=== PATIENT | male | born 1975 | race Hispanic/Latino ===

== ENCOUNTER 2017-06-12 02:16 | Emergency (ER) | payer OTHER, SELFPAY ==
[2017-06-12 02:45] LABS: Bilirubin Small (Negative); Blood, Urine Negative (Negative); Clarity CLEAR (Clear); Glucose, Urine (Dipstick) Negative (Negative); Leukocyte Negative (Negative); Nitrite Negative (Negative); Protein, Urine (Dipstick) 30 mg/dL (Neg-Trace); Specific Gravity, Urine 1.023 (1.002-1.036)
[2017-06-12 02:48] LABS: Bacteria/HPF None Seen HPF (None Seen); Hyaline Casts/LPF 4-6 HYALINE CAST LPF (0-3 Hyaline); Pathc Cast-AUWi Flag 0.58 (0-2.49); RBC/HPF 0-3 HPF (0-3); Squamous Epithelial 0-3 HPF (0-3)
[2017-06-12 02:54] LABS: #Basophils 0.1 thou/uL (0.0-0.2); #Lymphocytes 2.7 thou/uL (1.20-3.40); #Monocytes 0.6 thou/uL (0.11-0.59); #Neutrophils 3.4 thou/uL (1.40-6.50); %Eosinophils 0.7 % (0.0-10.0); %Lymphocytes 39.8 % (21.0-51.0); %Monocytes 8.3 % (0.0-10.0); %Neutrophils 50.2 % (42.0-75.0); Hemoglobin 16.3 g/dL (14.0-18.0); Mean Corpuscular HGB CONC 35.8 g/dL (32.0-36.0); Mean Corpuscular Hemoglobin 31.4 pg (27.0-31.0); Mean Corpuscular Volume 87.7 fl (80.0-94.0); Mean Platelet Volume 5.8 fL (7.4-10.4); Platelet Count 404 thou/uL (130-400); RBC Distribution Width 11.8 % (11.5-14.5); Red Blood Cell (RBC) Count 5.19 mill/uL (4.70-6.10); White Blood Cell (WBC) Count 6.8 thou/uL (4.8-10.8)
[2017-06-12 03:15] LABS: ALT (SGPT) 27 U/L (8-55); AST (SGOT) 16 U/L (5-34); Albumin 4.9 g/dL (3.5-5.0); Alkaline Phosphatase 118 U/L (40-150); Anion Gap 11 mmol/L (10-20); BUN (Urea Nitrogen) 9 mg/dL (8.9-20.6); Calc. Creatinine Clearance 0 mL/min (70-130); Calcium 10.3 mg/dL (7.8-10.44); Carbon Dioxide 29 mmol/L (22-29); Chloride 101 mmol/L (98-107); Estimated GFR-MDRD Greater than 90; Globulin 3.3 g/dL (2.4-3.5); Glucose 103 mg/dL (70-105); Protein, Total 8.2 g/dL (6.0-8.3); Sodium 137 mmol/L (136-145)
[2017-06-12 04:40] LABS: BHCG - Serum Negative; Pregs Control Background? CLEAR/WHITE (CLR/WHITE); Pregs Control Bar Appear? YES (CONTROL BAR)
[2017-06-12] MEDS ORDERED: Metoclopramide HCl 10 MG/2 ML VIAL ONE (04:43)
[2017-06-12 05:11] LABS: Troponin I Less than 0.010 ng/mL (< 0.028)
[2017-06-12] MEDS ORDERED: Dicyclomine 20 MG TAB ONE (05:13)
[2017-06-12] MEDS ORDERED: Pantoprazole 40 MG VIAL ONE (05:21)
[2017-06-12 05:43] LABS: Methamphetamine Detected (NotDetected)
[2017-06-12 05:44] LABS: Amphetamine Detected (NotDetected); Barbiturates Screen Not Detected (NotDetected); Benzodiazepine Screen Not Detected (NotDetected); Cocaine Metabolite Screen Not Detected (NotDetected); Medtox Control Line Valid? VALID (VALID); Medtox Reader # READER 1; Methadone Not Detected (NotDetected); Opiate Screen Not Detected (NotDetected); Oxycodone Screen Not Detected (NotDetected); Phencyclidine (PCP) Not Detected (NotDetected); THC/Cannabinoid Screen Not Detected (NotDetected); Tricyclic Screen Not Detected (NotDetected)
[2017-06-12] MEDS ORDERED: Meropenem 1 GM in Sodium Chloride 0.9% 100 ML IVPB SCH (07:15)
[2017-06-12] MEDS ORDERED: Meropenem 1 GM in Sterile Water 20 ML SLOW IVP SCH (07:15)
[2017-06-12] MEDS ORDERED: ISOVUE-370 76%-LOCM 1 ML ONE (08:03)
--- NOTE | 2017-06-12 08:52 | CT ---
PRELIMINARY REPORT/[facility]/EMERGENTY AFTER-HOURS PROCEDURE CT Abdomen and Pelvis With Intravenous Contrast CLINICAL HISTORY: 41 years old, male; Pain and signs and symptoms; Nausea and vomiting; Abdominal pain; Localized; Left lower quadrant (llq); Patient HX: 41 yo m presents to ed C/O vomiting since sunday. Pt denies dairrh ea. States that he has not been eating or drinking much since then. Last bm was yesterday and normal. Pt still passing gas. Also reports llq abdominal pain. Denies dysuria. Pt states that he used to use cocaine a long time ago then sunday night used meth. States that this is about when his symptoms sta rted. TECHNIQUE: Axial computed tomography images of the abdomen and pelvis with intravenous contrast. Coronal reforma tted images were created and reviewed. COMPARISON: No relevant prior studies available. FINDINGS: Lung bases: Small nonspecific parenchymal opacity in the left lower lobe consistent small nodular opa cities and groundglass opacity, most likely representing loculated which could be due to infection or aspiration. ABDOMEN: Liver: Unremarkable. No mass. Gallbladder and bile ducts: Gallbladder wall is minimally thickened; however, there is no pericholecy stic inflammation to indicate acute cholecystitis. No cholelithiasis or biliary ductal dilatation. Pancreas: Unremarkable. No mass. No ductal dilation. Spleen: Unremarkable. No splenomegaly. Adrenals: Unremarkable. No mass. Kidneys and ureters: Unremarkable. No solid mass. No hydronephrosis. Stomach and bowel: Unremarkable. No obstruction. No mucosal thickening. Appendix: Normal appendix. PELVIS: Bladder: Unremarkable. No mass. Reproductive: Unremarkable as visualized. ABDOMEN and PELVIS: Intraperitoneal space: Unremarkable. No free air. No significant fluid collection. Bones/joints: No acute fracture. No dislocation. Soft tissues: Substantial gynecomastia. Vasculature: Unremarkable. No abdominal aortic aneurysm. Lymph nodes: Unremarkable. No enlarged lymph nodes. IMPRESSION: 1. Small area of bronchiolitis in the left lower lobe which could be due to infection or aspiration. 2. Substantial gynecomastia. 3. Minimal gallbladder wall thickening without pericholecystic inflammation may indicate early/mild a cute cholecystitis. Thank you for allowing us to participate in the care of your patient. Dictated and Authenticated by: Galdino Pickard MD 06/12/2017 5:15 AM Central Time ([place] & [place]) FINAL REPORT CT ABDOMEN AND PELVIS WITH IV CONTRAST DATE: 06/12/17. TIME: Performed on an emergency basis at 0500 hours. HISTORY: Abdominal pain. Vomiting. FINDINGS: No comparison. The findings agree with the preliminary report from [facility]. No evidence o f bowel obstruction. Subtle haziness at the level of the gallbladder wall is likely not significant. Clinical correlation regarding other signs and symptoms of early cholecystitis is required. Small focus of pneumonitis is confirmed at the left lung base. POS: OFF
--- NOTE | 2017-06-12 08:55 | ULT ---
PRELIMINARY REPORT/[facility]/EMERGENTY AFTER-HOURS PROCEDURE US Abdomen Limited, Right Upper Quadrant CLINICAL HISTORY: 41 years old, male; Pain and signs and symptoms; Nausea and vomiting; Abdominal pain; Localized; Righ t upper quadrant (ruq) TECHNIQUE: Real-time ultrasound of the right upper quadrant with image documentation. COMPARISON: CT Abdomen Pelvis W Con 2017-06-12 05:01 FINDINGS: Liver: Normal. No mass. No intrahepatic bile duct dilation. Gallbladder: There are numerous gallstones and gallbladder sludge. Pericholecystic fluid is present. There is gallbladder wall thickening measuring approximately 3 mm. A positive sonographic Marte sign is reported. Common bile duct: Unremarkable as visualized. No stones. No dilation. Pancreas: The pancreas is poorly-visualized due to overlying bowel gas. Right kidney: RIGHT kidney measures 10.2 x 4.9 x 4.6 cm. No stones. No hydronephrosis. IMPRESSION: Acute cholecystitis. Thank you for allowing us to participate in the care of your patient. Dictated and Authenticated by: Major Mckeon MD 06/12/2017 6:27 AM Central Time ([place] & [place]) RIGHT UPPER QUADRANT ULTRASOUND: Date: 06-12-17 Performed on emergency basis at 0543 hours. History: Right upper quadrant pain. FINDINGS: The findings agree with the preliminary report by Dr. Mckeon from [facility]. Large stones are confirmed within the gallbladder lumen with distention of the gallbladder and thickening of the wall . Findings are evidence of acute cholecystitis. Code QA POS: OFF
--- NOTE | 2017-06-12 10:16 | CON ---
DATE OF CONSULTATION: 06/12/2017 CHIEF COMPLAINT: Midepigastric pain. HISTORY: This is a 41-year-old male who was using methamphetamines on Sunday night, early Sunday tereza christine developed afterwards central abdominal pain, nausea, and vomiting. He came to the ER last night and now feels fine. No pain. PAST MEDICAL HISTORY: Otherwise, unremarkable. PAST SURGICAL HISTORY: None. ALLERGIES: No known drug allergies. MEDICATIONS: None. SOCIAL HISTORY: Single. 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 No tobacco, no alcoho l. FAMILY HISTORY: Noncontributory. PHYSICAL EXAMINATION: VITAL SIGNS: Temperature is 97.8, pulse 69, blood pressure 129/87. GENERAL: Well-developed, well-nourished male in no apparent distress. HEENT: No jaundice. LUNGS: Clear. HEART: Regular rate and rhythm. ABDOMEN: Soft, nontender, good bowel sounds. EXTREMITIES: Unremarkable. LABORATORY AND X-RAY FINDINGS: His white blood cell count is 6.8, H&H 16 and 45, platelet count 404. Electrolytes are fine. Liver function tests normal. His tox screen was positive for methamphetami ne and amphetamines. He had a CT scan that was pretty unremarkable, but an ultrasound that showed ga llstones, some wall thickening, some pericholecystic fluid. ASSESSMENT AND PLAN: Probable acute cholecystitis. However, he is better now. I gave him the optio n of coming in the hospital and getting this done, but he asked me to let him go home. He feels fine . He does not want to do it right now. He will follow up with me in the office. He understands bakari t these gallstones are not going to go away, they can lead to further complications like pancreatitis that could be life threatening and severe. He understands and still wants to go home.
--- NOTE | 2017-08-03 11:47 | EKG ---
Test Reason : ABD PAIN/ DRUG USE Blood Pressure : / mmHG Vent. Rate : 073 BPM Atrial Rate : 073 BPM P-R Int : 136 ms QRS Dur : 074 ms QT Int : 376 ms P-R-T Axes : 060 045 032 degrees QTc Int : 414 ms Normal sinus rhythm with sinus arrhythmia Normal ECG Confirmed by LIZBETH CONLEY ([id number]), senior editor RALEIGH ROSE ([id number]) on 08/03/2017 11:46:48 AM Referred By: JARVIS Confirmed By:LIZBETH CONLEY
== END 2017-06-12 08:23 | disposition home or self-care (01) ==
LOC: ERS 02:16
DX: K81.9 Cholecystitis, unspecified (principal); F17.210 Nicotine dependence, cigarettes, uncomplicated
CPT/HCPCS: 36415; 74177; 76705; 80053; 80306; 81003; 81015; 82553; 83690; 84484; 84703; 85025; 93005; 96361; 96374; 96375; 99406; A4216; C9113; J2185; J2765; J7050

== ENCOUNTER 2017-06-20 13:19 | Inpatient (IN) | payer SELFPAY ==
[2017-06-20 14:05] LABS: #Lymphocytes 1.8 thou/uL (1.20-3.40); #Monocytes 0.4 thou/uL (0.11-0.59); #Neutrophils 4.4 thou/uL (1.40-6.50); %Basophils 0.7 % (0.0-1.0); %Eosinophils 0.6 % (0.0-10.0); %Lymphocytes 26.4 % (21.0-51.0); %Monocytes 6.3 % (0.0-10.0); %Neutrophils 66.1 % (42.0-75.0); Hemoglobin 16.9 g/dL (14.0-18.0); Mean Corpuscular HGB CONC 36.2 g/dL (32.0-36.0); Mean Corpuscular Hemoglobin 31.5 pg (27.0-31.0); Mean Corpuscular Volume 87.1 fl (80.0-94.0); Mean Platelet Volume 5.9 fL (7.4-10.4); Platelet Count 393 thou/uL (130-400); RBC Distribution Width 11.8 % (11.5-14.5); Red Blood Cell (RBC) Count 5.36 mill/uL (4.70-6.10); White Blood Cell (WBC) Count 6.7 thou/uL (4.8-10.8)
[2017-06-20 14:19] LABS: Blood, Urine Negative (Negative); Clarity CLOUDY (Clear); Glucose, Urine (Dipstick) Negative (Negative); Protein, Urine (Dipstick) 30 mg/dL (Neg-Trace); Specific Gravity, Urine 1.032 (1.002-1.036)
[2017-06-20 14:22] LABS: Bacteria/HPF None Seen HPF (None Seen); RBC/HPF 0-3 HPF (0-3); Squamous Epithelial 0-3 HPF (0-3)
[2017-06-20 14:25] LABS: Pathc Cast-AUWi Flag 5.23 (0-2.49)
[2017-06-20 14:28] LABS: ALT (SGPT) 49 U/L (8-55); AST (SGOT) 19 U/L (5-34); Albumin 4.7 g/dL (3.5-5.0); Alkaline Phosphatase 132 U/L (40-150); Anion Gap 16 mmol/L (10-20); BUN (Urea Nitrogen) 15 mg/dL (8.9-20.6); Bilirubin, Total 1.5 mg/dL (0.2-1.2); Calc. Creatinine Clearance 0 mL/min (70-130); Calcium 9.7 mg/dL (7.8-10.44); Carbon Dioxide 20 mmol/L (22-29); Chloride 99 mmol/L (98-107); Estimated GFR-MDRD Greater than 90; Globulin 3.2 g/dL (2.4-3.5); Glucose 191 mg/dL (70-105); Lipase 9 U/L (8-78); Potassium 3.3 mmol/L (3.5-5.1); Protein, Total 7.9 g/dL (6.0-8.3); Sodium 132 mmol/L (136-145)
[2017-06-20 14:29] LABS: Bilirubin Moderate (Negative); Leukocyte Negative (Negative); Nitrite Negative (Negative)
[2017-06-20 14:35] LABS: Hyaline Casts/LPF 7-10 HYALINE CAST LPF (0-3 Hyaline); Other Casts/LPF None Seen LPF (0-3 Hyaline)
--- NOTE | 2017-06-20 18:21 | ULT ---
ULTRASOUND ABDOMEN LIMITED: (RIGHT UPPER QUADRANT) DATE: 06/20/17 TIME: 4:44 p.m. HISTORY: 41-year-old male with right upper quadrant abdominal pain. FINDINGS: Gallbladder: There is a 30 x 25 x 20 mm calculus in the proximal gallbladder body. Normal wall thickn ess. Positive tenderness over the gallbladder region. Common duct: 3 mm. Liver: Normal. Pancreas: Completely obscured by shadowing from bowel gas. Right kidney: No hydronephrosis. IMPRESSION: Positive for cholelithiasis. ANTONI Bullard POS: JOSE MIGUEL
[2017-06-20] MEDS ORDERED: Ketorolac Tromethamine 30 MG/ML VIAL ONE (18:55)
[2017-06-20] MEDS ORDERED: Ondansetron HCl/PF 4 MG/2 ML Vial IVP PRN (19:34)
[2017-06-20] MEDS ORDERED: Promethazine HCl 25 MG/ML VIAL IM/IV PRN (19:34)
[2017-06-20] MEDS ORDERED: Morphine 4 MG/ML VIAL SLOW IVP PRN ×2 (19:45)
[2017-06-20] MEDS: Piperacillin/Tazobactam 3.375 GM in Sodium Chloride 0.9% 100 ML IVPB SCH (21:39)
[2017-06-20] MEDS: Lactated Ringer's 1,000 ML IV SCH (21:44)
--- NOTE | 2017-06-20 23:28 | HP ---
CHIEF COMPLAINT: Severe right upper quadrant pain. HISTORY OF PRESENT ILLNESS: The patient is a 41-year-old male who a week ago, came to the ER with se imelda biliary colic. He got better. He decided did not want to have this gallbladder taken out, so felix marie went home. He returns with recurrence of the pain. Denies fever. He has been vomiting. He wants to have a surgery now. PAST MEDICAL HISTORY: Significant for known IV drug abuse including methamphetamine. PAST SURGICAL HISTORY: None. ALLERGIES: No known drug allergies. MEDICATIONS: None. SOCIAL HISTORY: He is single. He works at [employer]. No tobacco, no alcohol, but he does use amphetamines and methamphetamines. PHYSICAL EXAMINATION: VITAL SIGNS: His blood pressure 149/111, pulse 105, his temperature is 97.4. GENERAL: Well-developed, well-nourished male, in mild pain. HEENT: No jaundice. LUNGS: Clear. HEART: Regular rate and rhythm. ABDOMEN: Soft. He is tender in the right upper quadrant with a positive Marte sign. EXTREMITIES: Unremarkable. LABORATORY DATA: His white count 6.7, H and H 16 and 46, and platelet count 393. Electrolytes show an elevated bilirubin at 1.5. Urinalysis showed some ketones and bilirubin. ASSESSMENT: Acute cholecystitis with possible choledocholithiasis. PLAN: Admit, IV antibiotics and IV fluids. Recommend laparoscopic cholecystectomy with cholangiogra m in the morning.
[2017-06-21] MEDS: Piperacillin/Tazobactam 3.375 GM in Sodium Chloride 0.9% 100 ML IVPB SCH ×4 (03:03→21:16)
[2017-06-21 05:56] VITALS: BMI 24.3
[2017-06-21] MEDS ORDERED: Fentanyl 250 MCG/5 ML VIAL ONE (06:49)
[2017-06-21] MEDS ORDERED: Bupivacaine/Epinephrine 0.25% 30 ML VIAL ONE (07:06)
[2017-06-21] MEDS ORDERED: Iothalamate Meglumine 60% 50 ML VIAL FS ONE (07:06)
[2017-06-21] MEDS ORDERED: Piperacillin/Tazobactam 3.375 GM VIAL ONE (07:22)
[2017-06-21] MEDS: Lactated Ringer's 1,000 ML IV SCH ×3 (07:44→21:19)
[2017-06-21] MEDS ORDERED: HYDROcodone/Acetaminophen 10/325 mg Tablet PO PRN (08:44)
[2017-06-21] MEDS ORDERED: Morphine 4 MG/ML VIAL SLOW IVP PRN ×2 (08:44)
[2017-06-21] MEDS ORDERED: Promethazine HCl 25 MG/ML VIAL IM PRN ×3 (08:44→08:52)
[2017-06-21] MEDS ORDERED: Dextrose 50% Abboject 50 ML SYRINGE SLOW IVP PRN (08:44)
[2017-06-21] MEDS ORDERED: Calcium Carbonate 500 MG ChewTAB PO PRN (08:44)
[2017-06-21] MEDS ORDERED: Ondansetron HCl/PF 4 MG/2 ML Vial IVP PRN ×3 (08:44→08:52)
[2017-06-21] MEDS ORDERED: hydrALAZINE 20 MG/ML VIAL SLOW IVP PRN (08:44)
[2017-06-21] MEDS ORDERED: Dextrose 5% in Water 1,000 ML IV PRN (08:44)
[2017-06-21] MEDS ORDERED: Mag-Al 1200 mg/1200 mg/30 ML UDCUP PO PRN (08:44)
[2017-06-21] MEDS ORDERED: HYDROmorphone 2 MG/ML VIAL SLOW IVP PRN ×2 (08:52)
[2017-06-21] MEDS ORDERED: Promethazine HCl 25 MG/ML VIAL SLOW IVP PRN ×2 (08:52)
[2017-06-21] MEDS ORDERED: Fentanyl 100 MCG/2 ML VIAL ONE (08:53)
[2017-06-21] MEDS ORDERED: Ketorolac Tromethamine 30 MG/ML VIAL ONE (08:53)
--- NOTE | 2017-06-21 10:07 | RAD ---
INTRAOPERATIVE CHOLANGIOGRAM AND SURGERY: HISTORY: A 41-year-old male with a history of a laparoscopic cholecystectomy with cholangiogram, in a patient with abdominal pain and gallstones. FINDINGS: There is a nondilated common duct. There is emptying of the duodenum. No overt intraductal calculus . IMPRESSION: Unremarkable intraoperative cholangiogram. POS: JOSE MIGUEL
--- NOTE | 2017-06-21 10:30 | OP ---
PREOPERATIVE DIAGNOSES: Cholecystitis with elevated liver function tests. SURGEON: Neal Lowe M.D. PROCEDURE PERFORMED: Laparoscopic cholecystectomy with intraoperative cholangiogram. INDICATIONS: A 41-year-old male who has had multiple ER visits for severe right upper quadrant pain. Ultrasound showed cholelithiasis. He did have a bump in his LFTs. FINDINGS: He had a single large stone. The cholangiogram showed no filling defects, free flow in th e duodenum. PROCEDURE IN DETAIL: After informed consent was obtained, the patient was taken to the operating tasneem m and given general endotracheal anesthesia. She was placed in the supine position. Abdomen was pre pped and draped in usual fashion. Local anesthesia infiltrated subcutaneously and deep. A subumbili rossy incision was performed. The subcu divided sharply. The fascia grasped and two stay sutures of 0 Vicryl placed to side of midline. Midline incised. Digital palpation revealed no local adhesions. A blunt 10/12 trocar inserted. Pneumoperitoneum was created to a pressure of 15 mmHg. A 0 degree l aparoscope inserted under direct vision, three 5 mm ports placed subcostally. The gallbladder was gr asped and advanced superiorly. There were multiple adhesions to the gallbladder. These were taken d own using blunt and sharp dissection. The cystic duct, cystic artery in critical view was dissected out. A clip placed at the base of the gallbladder on the cystic duct, and incision made in the cysti c duct and the Arrow cholangiocatheter inserted. Intraoperative cholangiogram was performed utilizin g fluoroscopy. It showed free flow into the duodenum, no filling defects. The catheter removed. Th e duct triply ligated and divided. The artery triply ligated and divided. The gallbladder was remov ed from its fossa utilizing electrocautery. It was removed from the abdomen through the umbilical po rt. Hemostasis was assured. Trocars and retractors removed. The fascia closed with interrupted 0 V icryl suture. The skin closed with interrupted 4-0 Rapide. Dermabond applied. The patient tolerate d the procedure well and was transferred to recovery in good condition. Sponge and needle count veri fied correct x2.
[2017-06-21] MEDS: HYDROcodone/Acetaminophen 10/325 mg Tablet PO PRN ×2 (12:51→21:17)
[2017-06-21] MEDS: Famotidine 20 MG TAB PO SCH ×2 (12:53→21:18)
[2017-06-21] MEDS: Famotidine/PF 20 mg/2ml Vial SLOW IVP SCH ×2 (12:54→21:19)
[2017-06-21] MEDS ORDERED: Dexamethasone 20 MG/5 ML VIAL ONE ×2 (16:35)
[2017-06-21] MEDS ORDERED: Lidocaine 1% PF 5 ML VIAL ONE (16:35)
[2017-06-21] MEDS ORDERED: diphenhydrAMINE 50 MG/ML VIAL ONE (16:35)
[2017-06-21] MEDS ORDERED: PROPOFOL 200 MG/20 ML VIAL ONE (16:35)
[2017-06-21] MEDS ORDERED: Glycopyrrolate 0.2 MG/ML 5 ML SYRINGE ONE (16:35)
[2017-06-22] MEDS: Lactated Ringer's 1,000 ML IV SCH ×2 (02:30→14:37)
[2017-06-22] MEDS: Piperacillin/Tazobactam 3.375 GM in Sodium Chloride 0.9% 100 ML IVPB SCH ×3 (03:49→15:58)
[2017-06-22 05:33] LABS: #Lymphocytes 2.3 thou/uL (1.20-3.40); #Monocytes 0.7 thou/uL (0.11-0.59); %Basophils 0.2 % (0.0-1.0); %Eosinophils 0.3 % (0.0-10.0); %Lymphocytes 25.6 % (21.0-51.0); %Monocytes 7.6 % (0.0-10.0); %Neutrophils 66.3 % (42.0-75.0); Hemoglobin 11.7 g/dL (14.0-18.0); Mean Corpuscular HGB CONC 35.3 g/dL (32.0-36.0); Mean Corpuscular Hemoglobin 31.4 pg (27.0-31.0); Mean Corpuscular Volume 89.1 fl (80.0-94.0); Mean Platelet Volume 6.5 fL (7.4-10.4); Platelet Count 284 thou/uL (130-400); RBC Distribution Width 11.7 % (11.5-14.5); Red Blood Cell (RBC) Count 3.73 mill/uL (4.70-6.10); White Blood Cell (WBC) Count 9.1 thou/uL (4.8-10.8)
[2017-06-22] MEDS ORDERED: Enoxaparin Sodium 40 MG/0.4 ML SYRINGE SC SCH (06:00)
[2017-06-22 06:18] LABS: ALT (SGPT) 59 U/L (8-55); AST (SGOT) 39 U/L (5-34); Albumin 3.3 g/dL (3.5-5.0); Alkaline Phosphatase 109 U/L (40-150); Anion Gap 10 mmol/L (10-20); BUN (Urea Nitrogen) 4 mg/dL (8.9-20.6); Bilirubin, Total 0.4 mg/dL (0.2-1.2); Calc. Creatinine Clearance 139 mL/min (70-130); Carbon Dioxide 25 mmol/L (22-29); Chloride 110 mmol/L (98-107); Estimated GFR-MDRD Greater than 90; Glucose 150 mg/dL (70-105); Lipase 19 U/L (8-78); Potassium 3.5 mmol/L (3.5-5.1); Protein, Total 5.3 g/dL (6.0-8.3); Sodium 141 mmol/L (136-145)
[2017-06-22] MEDS: HYDROcodone/Acetaminophen 10/325 mg Tablet PO PRN ×2 (06:50→17:28)
[2017-06-22] MEDS: Famotidine 20 MG TAB PO SCH (08:59)
[2017-06-22] MEDS: Famotidine/PF 20 mg/2ml Vial SLOW IVP SCH (09:01)
--- NOTE | 2017-06-22 10:05 | DIS ---
DISCHARGE DIAGNOSIS: Severe biliary colic. SURGEON: Dr. Lowe. PROCEDURE PERFORMED: Laparoscopic cholecystectomy with cholangiogram. HOSPITAL COURSE: The patient was admitted, given IV antibiotics, IV fluids, taken to the operating r oom where he underwent a laparoscopic cholecystectomy with cholangiogram. He was found to have a sin gle large stone and normal cholangiogram. Postoperatively, he had moderate pain. He was kept one ni ght. He is discharged now in good condition, tolerating a regular diet, pain controlled on p.o. meds . He will be discharged on [place] and Zofran. He will follow up with me in 2 weeks.
[2017-06-22 15:48] VITALS: BP 136/89; TEMP 97.9
[2017-06-22] MEDS ORDERED: Polyethylene Glycol 3350 17 GM Packet PO SCH (16:15)
[2017-06-23] MEDS ORDERED: Enoxaparin Sodium 40 MG/0.4 ML SYRINGE SC SCH (09:00)
== END 2017-06-22 19:38 | disposition home or self-care (01) | DRG 419 ==
LOC: ERS 13:19 → OBSVTOIN 18:42 → SURG B 18:42 → UNDODISOB 06-22 19:38
PROVIDERS: ADMIT Surgery; ATTEND Surgery
PROC: 0FT44ZZ Resection of Gallbladder, Percutaneous Endoscopic Approach (ICD-10-PCS; principal; 2017-06-21)
PROC: BF101ZZ Fluoroscopy of Bile Ducts using Low Osmolar Contrast (ICD-10-PCS; 2017-06-21)
DX: K80.10 Calculus of gallbladder with chronic cholecystitis without obstruction (principal); F15.10 Other stimulant abuse, uncomplicated
CPT/HCPCS: 36415; 47532; 76705; 80053; 81003; 81015; 82150; 83605; 83690; 85025; 88304; 96361; 96374; J1100; J1200; J1650; J1885; J2001; J2543; J2704; J3010; J7050; Q9961

== ENCOUNTER 2017-07-13 20:46 | Emergency (ER) | payer SELFPAY ==
[2017-07-13 21:22] LABS: Bilirubin Negative (Negative); Blood, Urine Negative (Negative); Clarity CLEAR (Clear); Glucose, Urine (Dipstick) Negative (Negative); Leukocyte Trace (Negative); Nitrite Negative (Negative); Protein, Urine (Dipstick) Negative (Neg-Trace); Specific Gravity, Urine 1.027 (1.002-1.036); Urobilinogen 0.2 mg/dL (0.2-1.0); pH, Urine 5.5 (5.0-9.0)
[2017-07-13 21:24] LABS: Bacteria/HPF None Seen HPF (None Seen); Pathc Cast-AUWi Flag 1.74 (0-2.49); RBC/HPF 0-3 HPF (0-3); Squamous Epithelial 0-3 HPF (0-3)
[2017-07-13 21:25] LABS: Hyaline Casts/LPF 4-6 HYALINE CAST LPF (0-3 Hyaline)
[2017-07-13 22:30] LABS: #Basophils 0.1 thou/uL (0.0-0.2); #Eosinphils 0.2 thou/uL (0.0-0.7); #Lymphocytes 2.9 thou/uL (1.20-3.40); #Monocytes 0.7 thou/uL (0.11-0.59); #Neutrophils 4.2 thou/uL (1.40-6.50); %Basophils 0.7 % (0.0-1.0); %Eosinophils 2.8 % (0.0-10.0); %Lymphocytes 35.9 % (21.0-51.0); %Neutrophils 51.7 % (42.0-75.0); Hemoglobin 12.6 g/dL (14.0-18.0); Mean Corpuscular HGB CONC 35.7 g/dL (32.0-36.0); Mean Corpuscular Hemoglobin 31.6 pg (27.0-31.0); Mean Corpuscular Volume 88.4 fl (80.0-94.0); Mean Platelet Volume 5.7 fL (7.4-10.4); Platelet Count 394 thou/uL (130-400); RBC Distribution Width 11.3 % (11.5-14.5); Red Blood Cell (RBC) Count 3.99 mill/uL (4.70-6.10); White Blood Cell (WBC) Count 8.1 thou/uL (4.8-10.8)
[2017-07-13] MEDS ORDERED: Acetaminophen 325 MG TAB ONE (22:43)
[2017-07-13 22:53] LABS: ALT (SGPT) 11 U/L (8-55); AST (SGOT) 11 U/L (5-34); Albumin 3.6 g/dL (3.5-5.0); Alkaline Phosphatase 104 U/L (40-150); Anion Gap 10 mmol/L (10-20); BUN (Urea Nitrogen) 10 mg/dL (8.9-20.6); Bilirubin, Total 0.4 mg/dL (0.2-1.2); Calc. Creatinine Clearance 0 mL/min (70-130); Calcium 8.5 mg/dL (7.8-10.44); Carbon Dioxide 24 mmol/L (22-29); Chloride 107 mmol/L (98-107); Estimated GFR-MDRD Greater than 90; Globulin 2.7 g/dL (2.4-3.5); Glucose 106 mg/dL (70-105); Lipase 30 U/L (8-78); Potassium 3.3 mmol/L (3.5-5.1); Protein, Total 6.3 g/dL (6.0-8.3); Sodium 138 mmol/L (136-145)
== END 2017-07-14 00:42 | disposition home or self-care (01) ==
LOC: EEVIPCON 20:46 → ERS 20:46
DX: N39.0 Urinary tract infection, site not specified (principal); F41.9 Anxiety disorder, unspecified; F31.9 Bipolar disorder, unspecified; Z87.891 Personal history of nicotine dependence
CPT/HCPCS: 36415; 80053; 81003; 81015; 83690; 85025; 87086; 99283

== ENCOUNTER 2017-10-25 01:11 | Emergency (ER) | payer OTHER, SELFPAY ==
[2017-10-25 02:03] LABS: #Basophils 0.1 thou/uL (0.0-0.2); #Lymphocytes 2.7 thou/uL (1.20-3.40); #Monocytes 0.7 thou/uL (0.11-0.59); %Eosinophils 0.7 % (0.0-10.0); %Lymphocytes 41.6 % (21.0-51.0); %Neutrophils 45.7 % (42.0-75.0); Hemoglobin 17.3 g/dL (14.0-18.0); Mean Corpuscular HGB CONC 35.9 g/dL (32.0-36.0); Mean Corpuscular Hemoglobin 31.3 pg (27.0-31.0); Mean Corpuscular Volume 87.3 fL (78.0-98.0); Mean Platelet Volume 6.2 fL (7.4-10.4); Platelet Count 363 thou/uL (130-400); RBC Distribution Width 11.7 % (11.5-14.5); Red Blood Cell (RBC) Count 5.52 mill/uL (4.70-6.10); White Blood Cell (WBC) Count 6.5 thou/uL (4.8-10.8)
[2017-10-25] MEDS ORDERED: Ondansetron HCl/PF 4 MG/2 ML Vial ONE (02:17)
[2017-10-25 02:20] LABS: ALT (SGPT) 23 U/L (8-55); AST (SGOT) 23 U/L (5-34); Albumin 4.8 g/dL (3.5-5.0); Alkaline Phosphatase 129 U/L (40-150); Anion Gap 22 mmol/L (10-20); BUN (Urea Nitrogen) 14 mg/dL (8.9-20.6); Bilirubin, Total 1.4 mg/dL (0.2-1.2); Calc. Creatinine Clearance 0 mL/min (70-130); Calcium 10.3 mg/dL (7.8-10.44); Carbon Dioxide 18 mmol/L (22-29); Chloride 104 mmol/L (98-107); Estimated GFR-MDRD Greater than 90; Globulin 3.7 g/dL (2.4-3.5); Glucose 104 mg/dL (70-105); Potassium 3.9 mmol/L (3.5-5.1); Protein, Total 8.5 g/dL (6.0-8.3); Sodium 140 mmol/L (136-145)
--- NOTE | 2017-10-27 15:13 | EKG ---
Test Reason : [facility] Blood Pressure : / mmHG Vent. Rate : 102 BPM Atrial Rate : 102 BPM P-R Int : 116 ms QRS Dur : 072 ms QT Int : 340 ms P-R-T Axes : 062 025 038 degrees QTc Int : 443 ms Sinus tachycardia Otherwise normal ECG Confirmed by JOHNNIE HUSSEIN DO ([id number]), newspaper photo editor RALEIGH ROSE ([id number]) on 10/27/2017 3:13:03 PM Referred By: Confirmed By:JOHNNIE HUSSEIN DO
== END 2017-10-25 04:10 | disposition home or self-care (01) ==
LOC: ERS 01:11
DX: R11.2 Nausea with vomiting, unspecified (principal); Z87.891 Personal history of nicotine dependence
CPT/HCPCS: 36415; 80053; 85025; 93005; 96361; 96374; J2405

== ENCOUNTER 2018-04-14 19:25 | Emergency (ER) | payer SELFPAY ==
[2018-04-14 20:01] LABS: #Basophils 0.1 thou/uL (0.0-0.2); #Eosinphils 0.1 thou/uL (0.0-0.7); #Lymphocytes 2.3 thou/uL (1.20-3.40); #Monocytes 0.5 thou/uL (0.11-0.59); #Neutrophils 3.6 thou/uL (1.40-6.50); %Basophils 0.8 % (0.0-1.0); %Eosinophils 1.2 % (0.0-10.0); %Lymphocytes 35.2 % (21.0-51.0); %Monocytes 7.6 % (0.0-10.0); %Neutrophils 55.3 % (42.0-75.0); Hemoglobin 14.8 g/dL (14.0-18.0); Mean Corpuscular HGB CONC 35.4 g/dL (32.0-36.0); Mean Corpuscular Hemoglobin 31.8 pg (27.0-31.0); Mean Corpuscular Volume 89.9 fL (78.0-98.0); Mean Platelet Volume 6.4 fL (7.4-10.4); Platelet Count 372 thou/uL (130-400); RBC Distribution Width 11.8 % (11.5-14.5); Red Blood Cell (RBC) Count 4.65 mill/uL (4.70-6.10); White Blood Cell (WBC) Count 6.4 thou/uL (4.8-10.8)
[2018-04-14 20:19] LABS: Bilirubin Negative (Negative); Blood, Urine Negative (Negative); Clarity CLEAR (Clear); Glucose, Urine (Dipstick) Negative (Negative); Leukocyte Negative (Negative); Nitrite Negative (Negative); Protein, Urine (Dipstick) Negative (Neg-Trace); Urobilinogen 0.2 mg/dL (0.2-1.0)
[2018-04-14 20:21] LABS: Anion Gap 12 mmol/L (10-20); BUN (Urea Nitrogen) 6 mg/dL (8.9-20.6); Calc. Creatinine Clearance 0 mL/min (70-130); Calcium 9.2 mg/dL (7.8-10.44); Carbon Dioxide 28 mmol/L (22-29); Chloride 106 mmol/L (98-107); Estimated GFR-MDRD Greater than 90; Glucose 102 mg/dL (70-105); Potassium 3.8 mmol/L (3.5-5.1); Sodium 142 mmol/L (136-145)
== END 2018-04-14 21:13 | disposition home or self-care (01) ==
LOC: ERS 19:25
DX: R35.0 Frequency of micturition (principal); Z87.891 Personal history of nicotine dependence
CPT/HCPCS: 36415; 80048; 81003; 85025; 87086; 99283

== ENCOUNTER 2018-09-22 04:41 | Emergency (ER) | payer SELFPAY ==
[2018-09-22] MEDS ORDERED: Lorazepam 2 MG/ML VIAL ONE (04:53)
== END 2018-09-22 05:15 | disposition home or self-care (01) ==
LOC: ERS 04:41
DX: F15.10 Other stimulant abuse, uncomplicated (principal); R07.9 Chest pain, unspecified; R61 Generalized hyperhidrosis; Z87.891 Personal history of nicotine dependence
CPT/HCPCS: 99284; J2060

== ENCOUNTER 2019-05-13 19:52 | Emergency (ER) | payer SELFPAY | END 2019-05-13 21:31 | disposition home or self-care (01) | LOC: ERS 19:52 | DX: J06.9 Acute upper respiratory infection, unspecified (principal); R11.0 Nausea; Z87.891 Personal history of nicotine dependence | CPT/HCPCS: 87804; 99283 ==

== ENCOUNTER 2019-05-26 22:37 | Emergency (ER) | payer SELFPAY | END 2019-05-26 23:29 | disposition home or self-care (01) | LOC: ERS 22:37 | DX: R59.0 Localized enlarged lymph nodes (principal); Z87.891 Personal history of nicotine dependence | CPT/HCPCS: 99283 ==

== ENCOUNTER 2021-02-21 09:54 | Emergency (ER) | payer SELFPAY ==
[2021-02-21 11:28] LABS: #Basophils 0.1 thou/uL (0.0-0.2); #Eosinphils 0.1 thou/uL (0.0-0.7); #Lymphocytes 2.2 thou/uL (1.20-3.40); #Monocytes 0.9 thou/uL (0.11-0.59); #Neutrophils 6.4 thou/uL (1.40-6.50); %Basophils 0.8 % (0.0-1.0); %Eosinophils 0.7 % (0.0-10.0); %Lymphocytes 22.4 % (21.0-51.0); %Monocytes 9.3 % (0.0-10.0); %Neutrophils 66.7 % (42.0-75.0); Hemoglobin 15.6 g/dL (14.0-18.0); Mean Corpuscular HGB CONC 35.8 g/dL (32.0-36.0); Mean Corpuscular Hemoglobin 32.2 pg (27.0-31.0); Mean Platelet Volume 6.2 fL (7.4-10.4); Platelet Count 363 thou/uL (130-400); RBC Distribution Width 12.5 % (11.5-14.5); Red Blood Cell (RBC) Count 4.85 mill/uL (4.70-6.10); White Blood Cell (WBC) Count 9.6 thou/uL (4.8-10.8)
[2021-02-21 11:44] LABS: ALT (SGPT) 14 U/L (8-55); AST (SGOT) 17 U/L (5-34); Albumin 4.6 g/dL (3.5-5.0); Alkaline Phosphatase 141 U/L (40-110); Anion Gap 16 mmol/L (10-20); BUN (Urea Nitrogen) 15 mg/dL (8.9-20.6); Bilirubin, Total 0.9 mg/dL (0.2-1.2); CK (CPK) 130 U/L (30-200); Calc. Creatinine Clearance 0 mL/min (70-130); Calcium 9.8 mg/dL (7.8-10.44); Carbon Dioxide 24 mmol/L (22-29); Chloride 98 mmol/L (98-107); Globulin 3.7 g/dL (2.4-3.5); Glucose 101 mg/dL (70-105); Lipase 7 U/L (8-78); Potassium 4.6 mmol/L (3.5-5.1); Protein, Total 8.3 g/dL (6.0-8.3); Sodium 133 mmol/L (136-145)
== END 2021-02-21 11:43 | disposition home or self-care (01) ==
LOC: ERS 09:54
DX: F15.10 Other stimulant abuse, uncomplicated (principal)
CPT/HCPCS: 36415; 71045; 80053; 82550; 83690; 84484; 85025; 93005

== ENCOUNTER 2023-01-21 13:04 | Inpatient (IN) | payer SELFPAY ==
[~2023-01-21 13:04] MED LIST: Iopamidol-370 76% 500 ML MDV (1 ML CHARGE) ONE
[2023-01-21 14:46] LABS: Hematocrit 41.3 % (42.0-52.0); Hemoglobin 14.5 g/dL (14.0-18.0); Mean Corpuscular HGB CONC 35.1 g/dL (32.0-36.0); Mean Corpuscular Hemoglobin 30.5 pg (27.0-31.0); Mean Corpuscular Volume 86.9 fl (78.0-98.0); Mean Platelet Volume 8.7 fL (7.4-10.4); Platelet Count 288 10x3/uL (130-400); RBC Distribution Width 12.3 % (11.5-14.5); Red Blood Cell (RBC) Count 4.75 mill/uL (4.70-6.10); White Blood Cell (WBC) Count 9.4 10x3/uL (4.8-10.8)
[2023-01-21 14:50] LABS: Delete Auto Diff?? YES; Manual Diff?? YES
[2023-01-21 15:09] LABS: Band 7 % (5-11); CellaVision Operator ID lab.dlt; Eosinophils 2 % (0-10); Lymphocytes 23 % (21-51); Monocytes 8 % (0-10); Neutrophil 56 % (42-75); Platelet Adequacy Comment Platelets Normal; Reactive Lymphocytes 4 % (0-10); Total Cell Count 99
[2023-01-21] MEDS ORDERED: Ampicillin/Sulbactam 3 GM in Sodium Chloride 0.9% 100 ML IVPB SCH (15:15)
[2023-01-21 15:16] LABS: ALT (SGPT) 41 U/L (8-55); AST (SGOT) 30 U/L (5-34); Albumin 4.3 g/dL (3.5-5.0); Alkaline Phosphatase 165 U/L (40-110); Anion Gap 16 mmol/L (10-20); BUN (Urea Nitrogen) 6 mg/dL (8.9-20.6); Bilirubin, Total 0.4 mg/dL (0.2-1.2); Calc. Creatinine Clearance 0 mL/min (70-130); Calcium 9.5 mg/dL (7.8-10.44); Carbon Dioxide 25 mmol/L (22-29); Chloride 103 mmol/L (98-107); Estimated GFR 113; Globulin 3.4 g/dL (2.4-3.5); Glucose 110 mg/dL (70-105); Potassium 3.8 mmol/L (3.5-5.1); Protein, Total 7.7 g/dL (6.0-8.3); Sodium 140 mmol/L (136-145)
[2023-01-21 15:37] LABS: HIV (1/2) Antibody/Antigen Non-Reactive (NonReactive); HIV 1/2 INDEX 0.31 S/CO (<1.00)
[2023-01-21] MEDS ORDERED: Dexamethasone 10 MG/ML VIAL ONE (15:51)
[2023-01-21] MEDS ORDERED: Ampicillin/Sulbactam 3 GM VIAL ONE (15:51)
[2023-01-21] MEDS ORDERED: Sodium Chloride 0.9% 100 ML ONE (15:52)
[2023-01-21] MEDS ORDERED: Morphine 4 MG/ML VIAL ONE (16:11)
[2023-01-21] MEDS ORDERED: diphenhydrAMINE 50 MG/ML VIAL ONE (16:49)
[2023-01-21 18:12] LABS: Lactic Acid 2.5 mmol/L (0.5-2.2)
[2023-01-21] MEDS ORDERED: Ondansetron PF 4 MG/2 ML Vial IVP PRN (18:18)
[2023-01-21] MEDS ORDERED: Ondansetron ODT 4 MG TAB PO PRN (18:18)
[2023-01-21] MEDS ORDERED: Sodium Chloride 0.9% 1,000 ML IV SCH ×2 (18:30→18:40)
[2023-01-21] MEDS ORDERED: Vancomycin (BATCH) 1.5 GM in Premix 1 BAG IVPB SCH (21:00)
[2023-01-21 21:26] VITALS: BMI 26.4
[2023-01-22] MEDS: Ampicillin/Sulbactam 3 GM in Sodium Chloride 0.9% 100 ML IVPB SCH ×4 (00:36→17:57)
[2023-01-22 05:41] LABS: Hematocrit 38.5 % (42.0-52.0); Hemoglobin 13.5 g/dL (14.0-18.0); Mean Corpuscular HGB CONC 35.1 g/dL (32.0-36.0); Mean Corpuscular Hemoglobin 30.5 pg (27.0-31.0); Mean Corpuscular Volume 86.9 fl (78.0-98.0); Mean Platelet Volume 8.6 fL (7.4-10.4); Platelet Count 321 10x3/uL (130-400); RBC Distribution Width 12.2 % (11.5-14.5); Red Blood Cell (RBC) Count 4.43 mill/uL (4.70-6.10); White Blood Cell (WBC) Count 8.1 10x3/uL (4.8-10.8)
[2023-01-22 05:58] LABS: Manual Diff?? YES
[2023-01-22 05:59] LABS: Delete Auto Diff?? YES
[2023-01-22 06:23] LABS: Band 3 % (5-11); CellaVision Operator ID lab.abc; Lymphocytes 12 % (21-51); Monocytes 3 % (0-10); Neutrophil 82 % (42-75); Platelet Adequacy Comment Platelets Normal; RBC Morphology Within Normal Limits; Total Cell Count 99
[2023-01-22] MEDS: Vancomycin 1 GM in Premix 1 BAG IVPB SCH ×3 (06:34→21:26)
[2023-01-22] MEDS: Ketorolac Tromethamine 30 MG/ML VIAL IVP PRN ×2 (06:40→21:25)
[2023-01-22 06:51] LABS: Anion Gap 14 mmol/L (10-20); BUN (Urea Nitrogen) 6 mg/dL (8.9-20.6); Calc. Creatinine Clearance 144 mL/min (70-130); Calcium 9.6 mg/dL (7.8-10.44); Carbon Dioxide 23 mmol/L (22-29); Chloride 105 mmol/L (98-107); Estimated GFR 116; Glucose 148 mg/dL (70-105); Potassium 4.1 mmol/L (3.5-5.1); Sodium 138 mmol/L (136-145)
[2023-01-22 07:27] LABS: Bilirubin Negative (Negative); Blood, Urine Negative (Negative); CAUTI Indications for Culture Pelvic or flank pain; Clarity Clear (Clear); Glucose, Urine (Dipstick) Greater than 1000 mg/dL (Negative); Ketone, Urine Negative (Negative); Leukocyte Negative Leu/uL (Negative); Nitrite Negative (Negative); Protein, Urine (Dipstick) Negative (Neg-Trace); RBC/HPF 0-3 HPF (0-3); Specific Gravity, Urine 1.011 (1.002-1.036); Squamous Epithelial 0-3 HPF (0-3); Urobilinogen Normal mg/dL (Less than 2); WBC/HPF 0-3 HPF (0-3)
[2023-01-22 07:29] LABS: Bacteria/HPF 1+ HPF (None Seen)
[2023-01-22 07:30] LABS: Urine Culture Reflex No No
[2023-01-22 07:30] LABS: Lactic Acid 1.9 mmol/L (0.5-2.2)
[2023-01-22 07:46] LABS: Amphetamine Not Detected (NotDetected); Barbiturates Screen Not Detected (NotDetected); Benzodiazepine Screen Not Detected (NotDetected); Cocaine Metabolite Screen Not Detected (NotDetected); Methadone Not Detected (NotDetected); Methamphetamine Not Detected (NotDetected); Opiate Screen Not Detected (NotDetected); Oxycodone Screen Not Detected (NotDetected); Phencyclidine (PCP) Not Detected (NotDetected); THC/Cannabinoid Screen Not Detected (NotDetected); Tricyclic Screen Not Detected (NotDetected)
[2023-01-22] MEDS: Dexamethasone 4 mg/ml Vial SLOW IVP SCH (08:32)
[2023-01-22 21:52] LABS: Vancomycin, Trough 14.1 ug/mL
[2023-01-23] MEDS: Ampicillin/Sulbactam 3 GM in Sodium Chloride 0.9% 100 ML IVPB SCH ×4 (00:32→17:49)
[2023-01-23] MEDS: Ketorolac Tromethamine 30 MG/ML VIAL IVP PRN ×3 (04:05→22:34)
[2023-01-23] MEDS: Vancomycin 1 GM in Premix 1 BAG IVPB SCH ×3 (04:06→21:03)
[2023-01-23 04:45] LABS: Hematocrit 36.1 % (42.0-52.0); Hemoglobin 12.8 g/dL (14.0-18.0); Mean Corpuscular HGB CONC 35.5 g/dL (32.0-36.0); Mean Corpuscular Hemoglobin 31.4 pg (27.0-31.0); Mean Corpuscular Volume 88.5 fl (78.0-98.0); Mean Platelet Volume 8.9 fL (7.4-10.4); Platelet Count 342 10x3/uL (130-400); RBC Distribution Width 12.5 % (11.5-14.5); Red Blood Cell (RBC) Count 4.08 mill/uL (4.70-6.10); White Blood Cell (WBC) Count 12.9 10x3/uL (4.8-10.8)
[2023-01-23 05:15] LABS: Anion Gap 13 mmol/L (10-20); BUN (Urea Nitrogen) 13 mg/dL (8.9-20.6); Calc. Creatinine Clearance 130 mL/min (70-130); Carbon Dioxide 26 mmol/L (22-29); Chloride 105 mmol/L (98-107); Estimated GFR 112; Glucose 114 mg/dL (70-105); Potassium 4.4 mmol/L (3.5-5.1); Sodium 140 mmol/L (136-145)
[2023-01-23 05:31] LABS: Delete Auto Diff?? YES; Manual Diff?? YES
[2023-01-23 06:49] LABS: Band 12 % (5-11); CellaVision Operator ID LAB.JMM; Lymphocytes 21 % (21-51); Monocytes 4 % (0-10); Neutrophil 58 % (42-75); Platelet Adequacy Comment Platelets Normal; Polychromasia SLIGHT = 2-3 cells HPF (0-2); Reactive Lymphocytes 5 % (0-10); Smudge Cells 25.7 %; Tear Drops SLIGHT = 2-5 cells HPF (0-1); Total Cell Count 101
[2023-01-23] MEDS: Dexamethasone 4 mg/ml Vial SLOW IVP SCH (08:55)
[2023-01-23] MEDS: Acetaminophen 325 MG TAB PO PRN (17:49)
[2023-01-23 23:02] LABS: Vancomycin, Trough 53.4 ug/mL
[2023-01-24 05:27] LABS: Hematocrit 37.2 % (42.0-52.0); Mean Corpuscular HGB CONC 34.9 g/dL (32.0-36.0); Mean Corpuscular Hemoglobin 30.4 pg (27.0-31.0); Mean Corpuscular Volume 87.1 fl (78.0-98.0); Mean Platelet Volume 8.6 fL (7.4-10.4); Platelet Count 352 10x3/uL (130-400); RBC Distribution Width 12.3 % (11.5-14.5); Red Blood Cell (RBC) Count 4.27 mill/uL (4.70-6.10); White Blood Cell (WBC) Count 11.6 10x3/uL (4.8-10.8)
[2023-01-24 05:39] LABS: Delete Auto Diff?? YES; Manual Diff?? YES
[2023-01-24 05:56] LABS: Anion Gap 14 mmol/L (10-20); BUN (Urea Nitrogen) 15 mg/dL (8.9-20.6); Calc. Creatinine Clearance 130 mL/min (70-130); Carbon Dioxide 27 mmol/L (22-29); Chloride 103 mmol/L (98-107); Estimated GFR 112; Glucose 108 mg/dL (70-105); Potassium 4.5 mmol/L (3.5-5.1); Sodium 139 mmol/L (136-145)
[2023-01-24 06:08] LABS: Vancomycin, Trough 14.8 ug/mL
[2023-01-24 06:18] LABS: Band 2 % (5-11); CellaVision Operator ID lab.abc; Eosinophils 2 % (0-10); Lymphocytes 24 % (21-51); Monocytes 7 % (0-10); Myelocyte 1 % (0-0); Neutrophil 53 % (42-75); Platelet Adequacy Comment Platelets Normal; RBC Morphology Within Normal Limits; Reactive Lymphocytes 11 % (0-10); Smudge Cells 10.9 %; Total Cell Count 101
[2023-01-24] MEDS: Ampicillin/Sulbactam 3 GM in Sodium Chloride 0.9% 100 ML IVPB SCH ×3 (06:28→12:40)
[2023-01-24] MEDS: Acetaminophen 325 MG TAB PO PRN (09:09)
[2023-01-24] MEDS: Dexamethasone 4 mg/ml Vial SLOW IVP SCH (09:11)
[2023-01-24] MEDS: Vancomycin 1 GM in Premix 1 BAG IVPB SCH ×2 (09:13→15:28)
[2023-01-24 15:48] VITALS: BP 129/79; TEMP 98.4
== END 2023-01-24 17:25 | disposition home or self-care (01) | DRG 603 ==
LOC: ERS 13:04 → 2SW 17:57
PROVIDERS: ADMIT Family Medicine; ATTEND Emergency Medicine
DX: L03.211 Cellulitis of face (principal); J35.1 Hypertrophy of tonsils; I88.8 Other nonspecific lymphadenitis; R13.10 Dysphagia, unspecified; R22.1 Localized swelling, mass and lump, neck; Z79.899 Other long term (current) drug therapy; Z90.49 Acquired absence of other specified parts of digestive tract; Z87.891 Personal history of nicotine dependence
CPT/HCPCS: 36415; 70491; 74177; 80048; 80053; 80202; 80306; 81001; 83605; 85025; 86140; 87040; 87081; 87389; 87430; 93005; 96365; 96366; 96375; J0295; J1100; J1200; J1885; J2270; J3370; J3370-JW; J3490; J7050; Q9967

== ENCOUNTER 2024-12-17 18:05 | Emergency (ER) | payer OTHER, SELFPAY ==
[2024-12-17] MEDS ORDERED: Lidocaine 1% w/Epinephrine 1:100K 20 ML VIAL ONE (18:44)
[2024-12-17] MEDS ORDERED: Boostrix 0.5 ML (Tdap) VIAL (>/=7 yrs of age) ONE (18:44)
[2024-12-17] MEDS ORDERED: HYDROcodone/Acetaminophen 5/325 mg Tablet ONE (18:51)
[2024-12-17] MEDS ORDERED: Bacitracin 1 PK ONE (20:33)
== END 2024-12-17 20:42 | disposition home or self-care (01) ==
LOC: ERS 18:05
DX: S81.851A Open bite, right lower leg, initial encounter (principal); Z23 Encounter for immunization; W54.0XXA Bitten by dog, initial encounter
CPT/HCPCS: 12032; 90471; 90715

== ENCOUNTER 2024-12-21 22:21 | Inpatient (IN) | payer OTHER, SELFPAY ==
[2024-12-21] MEDS ORDERED: Ketorolac Tromethamine 30 MG (1 mL) VIAL ONE (23:21)
[2024-12-21] MEDS ORDERED: Ondansetron PF 4 MG/2 ML Vial ONE (23:22)
[2024-12-21 23:53] LABS: #Basophils Less than 0.03 10x3/uL (0.0-0.2); #Eosinophils 0.11 10x3/uL (0.0-0.7); #Monocytes 0.92 10x3/uL (0.11-0.59); #Neutrophils 5.25 10x3/uL (1.40-6.50); %Basophils 0.2 % (0.0-1.0); %Eosinophils 1.3 % (0.0-10.0); %Lymphocytes 26.7 % (21.0-51.0); %Monocytes 10.7 % (0.0-10.0); %Neutrophils 60.8 % (42.0-75.0); Hematocrit 37.8 % (42.0-52.0); Hemoglobin 13.3 g/dL (14.0-18.0); Mean Corpuscular Hemoglobin 30.4 pg (27.0-31.0); Mean Corpuscular Volume 86.5 fL (78.0-98.0); Platelet Count 330 10x3/uL (130-400); Red Blood Cell (RBC) Count 4.37 mill/uL (4.70-6.10); White Blood Cell (WBC) Count 8.63 10x3/uL (4.8-10.8)
[2024-12-22 00:09] LABS: ALT (SGPT) 69 U/L (Less than 45); AST (SGOT) 63 U/L (11-34); Albumin 3.4 g/dL (3.1-4.5); Alkaline Phosphatase 176 U/L (40-110); Anion Gap 14 mmol/L (10-20); BUN (Urea Nitrogen) 9 mg/dL (8.9-20.6); Bilirubin, Total 0.3 mg/dL (0.3-1.2); Calc. Creatinine Clearance 0 mL/min (70-130); Calcium 8.8 mg/dL (7.8-10.44); Carbon Dioxide 25 mmol/L (22-29); Chloride 105 mmol/L (98-107); Globulin 3.6 g/dL (2.4-3.5); Glucose 95 mg/dL (70-105); Potassium 3.7 mmol/L (3.5-5.1); Sodium 140 mmol/L (136-145)
[2024-12-22] MEDS ORDERED: Ondansetron PF 4 MG/2 ML Vial ONE ×2 (01:15→12:08)
[2024-12-22] MEDS ORDERED: Pharmacy to Dose UNASYN IVPB PRN (04:54)
[2024-12-22] MEDS: Ketorolac Tromethamine 30 MG (1 mL) VIAL IVP PRN (05:01)
[2024-12-22 05:48] VITALS: BMI 26.7
[2024-12-22] MEDS: Acetaminophen 325 MG TAB PO PRN (05:54)
[2024-12-22] MEDS ORDERED: Iopamidol 370 76% 100 ML VIAL ONE (10:21)
[2024-12-22] MEDS ORDERED: fentaNYL PF 100 MCG/2 ML SYRINGE ONE ×2 (12:07→13:58)
[2024-12-22] MEDS ORDERED: PROPOFOL 20 ML ONE (12:07)
[2024-12-22] MEDS ORDERED: Lidocaine 1% PF 5 ML VIAL ONE (12:08)
[2024-12-22 18:21] LABS: HIV (1/2) Antibody/Antigen NONREACTIVE (NonReactive); HIV 1/2 INDEX 0.06 S/CO (<1.00); Hep A IgM AB NONREACTIVE (NonReactive); Hep A IgM S/CO 0.23 S/CO (0-0.79); Hep B Core IgM Index 0.11 S/CO (0-0.79); Hep B Surf Ag NONREACTIVE S/CO (NonReactive); Hep C IgG Ab NONREACTIVE S/CO (NonReactive); Hep C Index 0.07 S/CO (0-0.79)
[2024-12-23 05:15] LABS: #Basophils Less than 0.03 10x3/uL (0.0-0.2); #Eosinophils Less than 0.03 10x3/uL (0.0-0.7); #Monocytes 0.80 10x3/uL (0.11-0.59); #Neutrophils 7.60 10x3/uL (1.40-6.50); %Basophils 0.2 % (0.0-1.0); %Eosinophils 0.0 % (0.0-10.0); %Lymphocytes 15.5 % (21.0-51.0); %Monocytes 8.0 % (0.0-10.0); %Neutrophils 75.6 % (42.0-75.0); Hematocrit 35.8 % (42.0-52.0); Hemoglobin 12.1 g/dL (14.0-18.0); Mean Corpuscular Hemoglobin 29.7 pg (27.0-31.0); Mean Corpuscular Volume 87.7 fL (78.0-98.0); Platelet Count 379 10x3/uL (130-400); Red Blood Cell (RBC) Count 4.08 mill/uL (4.70-6.10); White Blood Cell (WBC) Count 10.05 10x3/uL (4.8-10.8)
[2024-12-23 05:53] LABS: ALT (SGPT) 90 U/L (Less than 45); AST (SGOT) 72 U/L (11-34); Albumin 3.2 g/dL (3.1-4.5); Alkaline Phosphatase 187 U/L (40-110); Anion Gap 12 mmol/L (10-20); BUN (Urea Nitrogen) 9 mg/dL (8.9-20.6); Bilirubin, Total 0.2 mg/dL (0.3-1.2); Calc. Creatinine Clearance 131 mL/min (70-130); Calcium 9.4 mg/dL (7.8-10.44); Carbon Dioxide 26 mmol/L (22-29); Chloride 104 mmol/L (98-107); Globulin 3.5 g/dL (2.4-3.5); Glucose 206 mg/dL (70-105); Potassium 4.4 mmol/L (3.5-5.1); Sodium 138 mmol/L (136-145)
[2024-12-23] MEDS: FLU (Fluarix Triv) 25-26 (6MOS UP)/PF 45 MCG/0.5 ML Syringe IM ONE (08:37)
[2024-12-23 11:23] VITALS: BMI 26.7
[2024-12-23] MEDS: Acetaminophen 500 MG TAB PO PRN (11:44)
[2024-12-23] MEDS: Ketorolac Tromethamine 30 MG (1 mL) VIAL IVP PRN (19:49)
[2024-12-24 06:54] LABS: ALT (SGPT) 73 U/L (Less than 45); AST (SGOT) 45 U/L (11-34); Albumin 3.0 g/dL (3.1-4.5); Alkaline Phosphatase 165 U/L (40-110); Anion Gap 13 mmol/L (10-20); BUN (Urea Nitrogen) 14 mg/dL (8.9-20.6); Bilirubin, Total 0.2 mg/dL (0.3-1.2); Calc. Creatinine Clearance 141 mL/min (70-130); Calcium 9.0 mg/dL (7.8-10.44); Carbon Dioxide 25 mmol/L (22-29); Chloride 108 mmol/L (98-107); Globulin 3.3 g/dL (2.4-3.5); Glucose 116 mg/dL (70-105); Potassium 3.8 mmol/L (3.5-5.1); Sodium 142 mmol/L (136-145)
[2024-12-24] MEDS: Enoxaparin 40 MG (0.4 mL) SYRINGE SC SCH (08:39)
[2024-12-24 08:52] LABS: #Basophils 0.07 10x3/uL (0.0-0.2); #Eosinophils 0.19 10x3/uL (0.0-0.7); #Monocytes 0.74 10x3/uL (0.11-0.59); #Neutrophils 4.19 10x3/uL (1.40-6.50); %Basophils 0.8 % (0.0-1.0); %Eosinophils 2.2 % (0.0-10.0); %Lymphocytes 37.2 % (21.0-51.0); %Monocytes 8.6 % (0.0-10.0); %Neutrophils 48.9 % (42.0-75.0); Hematocrit 36.5 % (42.0-52.0); Hemoglobin 12.5 g/dL (14.0-18.0); Mean Corpuscular Hemoglobin 30.7 pg (27.0-31.0); Mean Corpuscular Volume 89.7 fL (78.0-98.0); Platelet Count 369 10x3/uL (130-400); Red Blood Cell (RBC) Count 4.07 mill/uL (4.70-6.10); White Blood Cell (WBC) Count 8.58 10x3/uL (4.8-10.8)
[2024-12-24] MEDS ORDERED: Enoxaparin 40 MG (0.4 mL) SYRINGE SC SCH (09:00)
[2024-12-24] MEDS ORDERED: Lidocaine 4% Topical Sol 50 ML BOT TOP PRN (15:25)
[2024-12-25 06:53] LABS: #Basophils 0.06 10x3/uL (0.0-0.2); #Eosinophils 0.29 10x3/uL (0.0-0.7); #Monocytes 0.69 10x3/uL (0.11-0.59); #Neutrophils 3.99 10x3/uL (1.40-6.50); %Basophils 0.7 % (0.0-1.0); %Eosinophils 3.5 % (0.0-10.0); %Lymphocytes 37.3 % (21.0-51.0); %Monocytes 8.4 % (0.0-10.0); %Neutrophils 48.3 % (42.0-75.0); Hematocrit 35.2 % (42.0-52.0); Hemoglobin 12.1 g/dL (14.0-18.0); Mean Corpuscular Hemoglobin 30.3 pg (27.0-31.0); Mean Corpuscular Volume 88.0 fL (78.0-98.0); Platelet Count 351 10x3/uL (130-400); Red Blood Cell (RBC) Count 4.00 mill/uL (4.70-6.10); White Blood Cell (WBC) Count 8.26 10x3/uL (4.8-10.8)
[2024-12-25 07:10] LABS: ALT (SGPT) 60 U/L (Less than 45); AST (SGOT) 37 U/L (11-34); Albumin 2.9 g/dL (3.1-4.5); Alkaline Phosphatase 148 U/L (40-110); Anion Gap 12 mmol/L (10-20); BUN (Urea Nitrogen) 14 mg/dL (8.9-20.6); Bilirubin, Total 0.2 mg/dL (0.3-1.2); Calc. Creatinine Clearance 143 mL/min (70-130); Calcium 8.7 mg/dL (7.8-10.44); Carbon Dioxide 26 mmol/L (22-29); Chloride 106 mmol/L (98-107); Globulin 3.2 g/dL (2.4-3.5); Glucose 115 mg/dL (70-105); Potassium 4.0 mmol/L (3.5-5.1); Sodium 140 mmol/L (136-145)
[2024-12-26 05:52] LABS: #Basophils 0.06 10x3/uL (0.0-0.2); #Eosinophils 0.32 10x3/uL (0.0-0.7); #Monocytes 0.73 10x3/uL (0.11-0.59); #Neutrophils 3.03 10x3/uL (1.40-6.50); %Basophils 0.8 % (0.0-1.0); %Eosinophils 4.2 % (0.0-10.0); %Lymphocytes 42.6 % (21.0-51.0); %Monocytes 9.7 % (0.0-10.0); %Neutrophils 40.3 % (42.0-75.0); Hematocrit 37.0 % (42.0-52.0); Hemoglobin 13.0 g/dL (14.0-18.0); Mean Corpuscular Hemoglobin 30.6 pg (27.0-31.0); Mean Corpuscular Volume 87.1 fL (78.0-98.0); Platelet Count 359 10x3/uL (130-400); Red Blood Cell (RBC) Count 4.25 mill/uL (4.70-6.10); White Blood Cell (WBC) Count 7.53 10x3/uL (4.8-10.8)
[2024-12-26 06:11] LABS: ALT (SGPT) 76 U/L (Less than 45); AST (SGOT) 59 U/L (11-34); Albumin 3.2 g/dL (3.1-4.5); Alkaline Phosphatase 157 U/L (40-110); Anion Gap 15 mmol/L (10-20); BUN (Urea Nitrogen) 11 mg/dL (8.9-20.6); Bilirubin, Total 0.1 mg/dL (0.3-1.2); Calc. Creatinine Clearance 169 mL/min (70-130); Calcium 9.0 mg/dL (7.8-10.44); Carbon Dioxide 24 mmol/L (22-29); Chloride 104 mmol/L (98-107); Globulin 3.5 g/dL (2.4-3.5); Glucose 123 mg/dL (70-105); Potassium 4.1 mmol/L (3.5-5.1); Sodium 139 mmol/L (136-145)
[2024-12-26] MEDS: Sulfameth/Trimethoprim DS 800-160mg TAB PO SCH (19:34)
[2024-12-27 07:10] LABS: #Basophils 0.05 10x3/uL (0.0-0.2); #Eosinophils 0.35 10x3/uL (0.0-0.7); #Monocytes 0.68 10x3/uL (0.11-0.59); #Neutrophils 3.54 10x3/uL (1.40-6.50); %Basophils 0.6 % (0.0-1.0); %Eosinophils 4.4 % (0.0-10.0); %Lymphocytes 39.8 % (21.0-51.0); %Monocytes 8.6 % (0.0-10.0); %Neutrophils 44.7 % (42.0-75.0); Hematocrit 37.1 % (42.0-52.0); Hemoglobin 12.8 g/dL (14.0-18.0); Mean Corpuscular Hemoglobin 30.0 pg (27.0-31.0); Mean Corpuscular Volume 87.1 fL (78.0-98.0); Platelet Count 384 10x3/uL (130-400); Red Blood Cell (RBC) Count 4.26 mill/uL (4.70-6.10); White Blood Cell (WBC) Count 7.93 10x3/uL (4.8-10.8)
[2024-12-27 07:39] LABS: ALT (SGPT) 96 U/L (Less than 45); AST (SGOT) 74 U/L (11-34); Albumin 3.4 g/dL (3.1-4.5); Alkaline Phosphatase 163 U/L (40-110); Anion Gap 13 mmol/L (10-20); BUN (Urea Nitrogen) 12 mg/dL (8.9-20.6); Bilirubin, Total 0.2 mg/dL (0.3-1.2); Calc. Creatinine Clearance 131 mL/min (70-130); Calcium 9.0 mg/dL (7.8-10.44); Carbon Dioxide 24 mmol/L (22-29); Chloride 103 mmol/L (98-107); Globulin 3.3 g/dL (2.4-3.5); Glucose 110 mg/dL (70-105); Potassium 4.4 mmol/L (3.5-5.1); Sodium 136 mmol/L (136-145)
[2024-12-28 06:02] LABS: #Basophils 0.06 10x3/uL (0.0-0.2); #Eosinophils 0.33 10x3/uL (0.0-0.7); #Monocytes 0.69 10x3/uL (0.11-0.59); #Neutrophils 3.58 10x3/uL (1.40-6.50); %Basophils 0.7 % (0.0-1.0); %Eosinophils 4.1 % (0.0-10.0); %Lymphocytes 40.6 % (21.0-51.0); %Monocytes 8.5 % (0.0-10.0); %Neutrophils 44.1 % (42.0-75.0); Hematocrit 39.8 % (42.0-52.0); Hemoglobin 13.6 g/dL (14.0-18.0); Mean Corpuscular Hemoglobin 29.8 pg (27.0-31.0); Mean Corpuscular Volume 87.1 fL (78.0-98.0); Platelet Count 418 10x3/uL (130-400); Red Blood Cell (RBC) Count 4.57 mill/uL (4.70-6.10); White Blood Cell (WBC) Count 8.12 10x3/uL (4.8-10.8)
[2024-12-28 06:26] LABS: ALT (SGPT) 134 U/L (Less than 45); AST (SGOT) 100 U/L (11-34); Albumin 3.7 g/dL (3.1-4.5); Alkaline Phosphatase 179 U/L (40-110); Anion Gap 13 mmol/L (10-20); BUN (Urea Nitrogen) 18 mg/dL (8.9-20.6); Bilirubin, Total 0.2 mg/dL (0.3-1.2); Calc. Creatinine Clearance 121 mL/min (70-130); Calcium 9.3 mg/dL (7.8-10.44); Carbon Dioxide 23 mmol/L (22-29); Chloride 104 mmol/L (98-107); Globulin 3.6 g/dL (2.4-3.5); Glucose 108 mg/dL (70-105); Potassium 4.9 mmol/L (3.5-5.1); Sodium 135 mmol/L (136-145)
[2024-12-29] MEDS: Amoxicillin/Potassium Clav 875 MG TAB PO SCH ×2 (11:02→19:46)
[2024-12-29 17:50] LABS: #Basophils 0.06 10x3/uL (0.0-0.2); #Eosinophils 0.16 10x3/uL (0.0-0.7); #Monocytes 0.76 10x3/uL (0.11-0.59); #Neutrophils 6.62 10x3/uL (1.40-6.50); %Basophils 0.6 % (0.0-1.0); %Eosinophils 1.5 % (0.0-10.0); %Lymphocytes 28.7 % (21.0-51.0); %Monocytes 7.0 % (0.0-10.0); %Neutrophils 61.0 % (42.0-75.0); Hematocrit 46.2 % (42.0-52.0); Hemoglobin 15.9 g/dL (14.0-18.0); Mean Corpuscular Hemoglobin 30.0 pg (27.0-31.0); Mean Corpuscular Volume 87.2 fL (78.0-98.0); Platelet Count 491 10x3/uL (130-400); Red Blood Cell (RBC) Count 5.30 mill/uL (4.70-6.10); White Blood Cell (WBC) Count 10.84 10x3/uL (4.8-10.8)
[2024-12-29 18:08] LABS: ALT (SGPT) 152 U/L (Less than 45); AST (SGOT) 88 U/L (11-34); Albumin 4.5 g/dL (3.1-4.5); Alkaline Phosphatase 197 U/L (40-110); Anion Gap 13 mmol/L (10-20); BUN (Urea Nitrogen) 18 mg/dL (8.9-20.6); Bilirubin, Total 0.3 mg/dL (0.3-1.2); Calc. Creatinine Clearance 100 mL/min (70-130); Calcium 9.8 mg/dL (7.8-10.44); Carbon Dioxide 22 mmol/L (22-29); Chloride 100 mmol/L (98-107); Globulin 3.8 g/dL (2.4-3.5); Glucose 148 mg/dL (70-105); Potassium 4.0 mmol/L (3.5-5.1); Sodium 131 mmol/L (136-145)
[2024-12-30 05:50] LABS: #Basophils 0.06 10x3/uL (0.0-0.2); #Eosinophils 0.23 10x3/uL (0.0-0.7); #Monocytes 0.84 10x3/uL (0.11-0.59); #Neutrophils 4.42 10x3/uL (1.40-6.50); %Basophils 0.7 % (0.0-1.0); %Eosinophils 2.5 % (0.0-10.0); %Lymphocytes 37.7 % (21.0-51.0); %Monocytes 9.2 % (0.0-10.0); %Neutrophils 48.7 % (42.0-75.0); Hematocrit 41.5 % (42.0-52.0); Hemoglobin 14.1 g/dL (14.0-18.0); Mean Corpuscular Hemoglobin 29.9 pg (27.0-31.0); Mean Corpuscular Volume 88.1 fL (78.0-98.0); Platelet Count 423 10x3/uL (130-400); Red Blood Cell (RBC) Count 4.71 mill/uL (4.70-6.10); White Blood Cell (WBC) Count 9.09 10x3/uL (4.8-10.8)
[2024-12-30 06:10] LABS: ALT (SGPT) 111 U/L (Less than 45); AST (SGOT) 50 U/L (11-34); Albumin 3.9 g/dL (3.1-4.5); Alkaline Phosphatase 165 U/L (40-110); Anion Gap 17 mmol/L (10-20); BUN (Urea Nitrogen) 24 mg/dL (8.9-20.6); Bilirubin, Total 0.3 mg/dL (0.3-1.2); Calc. Creatinine Clearance 116 mL/min (70-130); Calcium 9.4 mg/dL (7.8-10.44); Carbon Dioxide 20 mmol/L (22-29); Chloride 102 mmol/L (98-107); Globulin 3.5 g/dL (2.4-3.5); Glucose 109 mg/dL (70-105); Potassium 4.5 mmol/L (3.5-5.1); Sodium 134 mmol/L (136-145)
[2024-12-31 05:25] LABS: #Basophils 0.05 10x3/uL (0.0-0.2); #Eosinophils 0.22 10x3/uL (0.0-0.7); #Monocytes 0.69 10x3/uL (0.11-0.59); #Neutrophils 3.33 10x3/uL (1.40-6.50); %Basophils 0.7 % (0.0-1.0); %Eosinophils 2.9 % (0.0-10.0); %Lymphocytes 43.4 % (21.0-51.0); %Monocytes 9.0 % (0.0-10.0); %Neutrophils 43.2 % (42.0-75.0); Hematocrit 37.5 % (42.0-52.0); Hemoglobin 12.6 g/dL (14.0-18.0); Mean Corpuscular Hemoglobin 29.9 pg (27.0-31.0); Mean Corpuscular Volume 89.1 fL (78.0-98.0); Platelet Count 370 10x3/uL (130-400); Red Blood Cell (RBC) Count 4.21 mill/uL (4.70-6.10); White Blood Cell (WBC) Count 7.69 10x3/uL (4.8-10.8)
[2024-12-31 05:41] LABS: ALT (SGPT) 82 U/L (Less than 45); AST (SGOT) 46 U/L (11-34); Albumin 3.7 g/dL (3.1-4.5); Alkaline Phosphatase 143 U/L (40-110); Anion Gap 11 mmol/L (10-20); BUN (Urea Nitrogen) 16 mg/dL (8.9-20.6); Bilirubin, Total 0.2 mg/dL (0.3-1.2); Calc. Creatinine Clearance 129 mL/min (70-130); Calcium 9.1 mg/dL (7.8-10.44); Carbon Dioxide 23 mmol/L (22-29); Chloride 107 mmol/L (98-107); Globulin 3.1 g/dL (2.4-3.5); Glucose 103 mg/dL (70-105); Potassium 4.5 mmol/L (3.5-5.1); Sodium 136 mmol/L (136-145)
[2025-01-01 05:43] LABS: #Basophils 0.05 10x3/uL (0.0-0.2); #Eosinophils 0.26 10x3/uL (0.0-0.7); #Monocytes 0.65 10x3/uL (0.11-0.59); #Neutrophils 3.20 10x3/uL (1.40-6.50); %Basophils 0.7 % (0.0-1.0); %Eosinophils 3.5 % (0.0-10.0); %Lymphocytes 42.8 % (21.0-51.0); %Monocytes 8.9 % (0.0-10.0); %Neutrophils 43.6 % (42.0-75.0); Hematocrit 36.9 % (42.0-52.0); Hemoglobin 12.6 g/dL (14.0-18.0); Mean Corpuscular Hemoglobin 30.3 pg (27.0-31.0); Mean Corpuscular Volume 88.7 fL (78.0-98.0); Platelet Count 369 10x3/uL (130-400); Red Blood Cell (RBC) Count 4.16 mill/uL (4.70-6.10); White Blood Cell (WBC) Count 7.34 10x3/uL (4.8-10.8)
[2025-01-01 05:53] LABS: ALT (SGPT) 72 U/L (Less than 45); AST (SGOT) 41 U/L (11-34); Albumin 3.8 g/dL (3.1-4.5); Alkaline Phosphatase 153 U/L (40-110); Anion Gap 13 mmol/L (10-20); BUN (Urea Nitrogen) 19 mg/dL (8.9-20.6); Bilirubin, Total 0.2 mg/dL (0.3-1.2); Calc. Creatinine Clearance 120 mL/min (70-130); Calcium 9.3 mg/dL (7.8-10.44); Carbon Dioxide 24 mmol/L (22-29); Chloride 104 mmol/L (98-107); Globulin 3.4 g/dL (2.4-3.5); Glucose 98 mg/dL (70-105); Potassium 4.2 mmol/L (3.5-5.1); Sodium 137 mmol/L (136-145)
[2025-01-02 05:40] LABS: #Basophils 0.04 10x3/uL (0.0-0.2); #Eosinophils 0.24 10x3/uL (0.0-0.7); #Monocytes 0.54 10x3/uL (0.11-0.59); #Neutrophils 3.00 10x3/uL (1.40-6.50); %Basophils 0.6 % (0.0-1.0); %Eosinophils 3.4 % (0.0-10.0); %Lymphocytes 45.4 % (21.0-51.0); %Monocytes 7.6 % (0.0-10.0); %Neutrophils 42.4 % (42.0-75.0); Hematocrit 38.6 % (42.0-52.0); Hemoglobin 13.2 g/dL (14.0-18.0); Mean Corpuscular Hemoglobin 29.9 pg (27.0-31.0); Mean Corpuscular Volume 87.5 fL (78.0-98.0); Platelet Count 369 10x3/uL (130-400); Red Blood Cell (RBC) Count 4.41 mill/uL (4.70-6.10); White Blood Cell (WBC) Count 7.07 10x3/uL (4.8-10.8)
[2025-01-02 05:52] LABS: ALT (SGPT) 62 U/L (Less than 45); AST (SGOT) 36 U/L (11-34); Albumin 3.9 g/dL (3.1-4.5); Alkaline Phosphatase 130 U/L (40-110); Anion Gap 15 mmol/L (10-20); BUN (Urea Nitrogen) 16 mg/dL (8.9-20.6); Bilirubin, Total 0.2 mg/dL (0.3-1.2); Calc. Creatinine Clearance 149 mL/min (70-130); Calcium 9.3 mg/dL (7.8-10.44); Carbon Dioxide 21 mmol/L (22-29); Chloride 105 mmol/L (98-107); Globulin 3.2 g/dL (2.4-3.5); Glucose 102 mg/dL (70-105); Potassium 4.2 mmol/L (3.5-5.1); Sodium 137 mmol/L (136-145)
[2025-01-02 11:48] VITALS: BP 151/92; TEMP 97.6
== END 2025-01-02 14:50 | disposition home or self-care (01) | DRG 857 ==
LOC: ERS 22:21 → ERHOLD 12-22 03:16 → SURG B 12-22 04:37 → OBSVTOIN 12-23 09:08
PROVIDERS: ADMIT Family Medicine; ATTEND Family Medicine
PROC: 0JBN0ZZ Excision of Right Lower Leg Subcutaneous Tissue and Fascia, Open Approach (ICD-10-PCS; principal; 2024-12-22)
PROC: 3E03329 Introduction of Other Anti-infective into Peripheral Vein, Percutaneous Approach (ICD-10-PCS; 2024-12-22)
PROC: 3E0234Z Introduction of Serum, Toxoid and Vaccine into Muscle, Percutaneous Approach (ICD-10-PCS; 2024-12-22)
DX: T81.49XA Infection following a procedure, other surgical site, initial encounter (principal); L03.115 Cellulitis of right lower limb; S81.851A Open bite, right lower leg, initial encounter; R74.01 Elevation of levels of liver transaminase levels; D64.9 Anemia, unspecified; I10 Essential (primary) hypertension; F15.90 Other stimulant use, unspecified, uncomplicated; Z88.5 Allergy status to narcotic agent; Z90.49 Acquired absence of other specified parts of digestive tract; Z88.1 Allergy status to other antibiotic agents; R73.9 Hyperglycemia, unspecified; Z79.2 Long term (current) use of antibiotics; Z23 Encounter for immunization
CPT/HCPCS: 36415; 76705; 80053; 80074; 83036; 83605; 85025; 87040; 87070; 87077; 87186; 87205; 87389; 96365; 96375; 96376; 97139; G0378; J0290; J0295; J1100; J1650; J1885; J2250; J2405; J2704; J3010; Q9967